=== PATIENT | female | born 1935 | race Asian ===

== ENCOUNTER → 2016-12-03 | Outpatient (CLI) | payer OTHER ==
[~2016-12-03] MED LIST: ALEN70TA48 PO; APIX2.5T PO; CALC1TAB90 PO; FOLI1TAB15 PO; MELO-273 PO; METF500T4 PO; MULT1TAB70 PO; POTA8TAB4 PO; ROSU10 PO
== END | disposition home or self-care (01) ==
LOC: RADPV 14:20
PROVIDERS: ATTEND Internal Medicine
DX: S43.52XA Sprain of left acromioclavicular joint, initial encounter (principal); M19.012 Primary osteoarthritis, left shoulder; X58.XXXA Exposure to other specified factors, initial encounter; Y93.89 Activity, other specified; Y92.89 Other specified places as the place of occurrence of the external cause; Y99.8 Other external cause status

== ENCOUNTER 2017-06-05 00:03 | Emergency (ER) | payer OTHER ==
[~2017-06-05] VITALS: Ht 144.8 cm; Wt 62.0 kg
[~2017-06-05 00:03] MED LIST changes: +MELO-106 PO; -MELO-273 PO
[2017-06-05] MEDS ORDERED: LORA1TAB3 PO (00:10)
[2017-06-05] MEDS ORDERED: METO25 PO (00:10)
[2017-06-05 00:27] LABS: GLUCOSE,POINT OF CARE 127 MG/DL (70-110)
[2017-06-05 00:34] LABS: BASOPHILS % (AUTO) 0.4 % (0.0-2.0); EOSINOPHILS % (AUTO) 1.6 % (1.0-6.0); HEMATOCRIT 40.7 % (36-46); HEMOGLOBIN 13.7 g/dL (12.0-16.0); LYMPHOCYTES # (AUTO) 2.9 K/uL (1.0-4.8); LYMPHOCYTES % (AUTO) 39.1 % (22.0-44.0); MEAN CORPUSCULAR HEMOGLOBIN 32.8 pg (26.0-34.0); MEAN CORPUSCULAR HGB CONC 33.6 G/dL (31.0-37.0); MEAN CORPUSCULAR VOLUME 98 fL (80-100); MONOCYTES # (AUTO) 0.6 K/uL (0.1-1.0); MONOCYTES % (AUTO) 7.5 % (2.0-9.0); NEUTROPHILS # (AUTO) 3.9 K/uL (1.8-7.7); NEUTROPHILS % (AUTO) 51.4 % (40.0-70.0); PLATELET COUNT (AUTO) 219 K/uL (150-450); RED BLOOD CELL COUNT(AUTO) 4.18 MIL/uL (4.00-5.20); RED CELL DISTRIBUTION WIDTH 14.3 % (11.5-14.5); WHITE BLOOD COUNT (AUTO) 7.5 K/uL (4.5-11.0)
[2017-06-05 00:43] LABS: ANION GAP 9 mmol/L (8-16); CALCIUM, TOTAL 9.6 mg/dL (8.8-10.5); CARBON DIOXIDE 31 mmol/L (22-29); CHLORIDE 103 mmol/L (98-107); CREATININE 1.18 mg/dL (0.60-1.30); GLOMERULAR FILTR. RATE CALC 44 mL/min (>60); POTASSIUM 3.4 mmol/L (3.5-5.1); SODIUM SERUM 143 mmol/L (136-145); UREA NITROGEN, BLOOD 23 mg/dL (7-18)
[2017-06-05 00:45] LABS: PROTHROMBIN TIME 10.6 SEC (9.4-11.6)
[2017-06-05] MEDS ORDERED: NITROGLYCERIN 2% (1 GM=INCH) PACKET TP ONE (00:45)
[2017-06-05] MEDS ORDERED: ASPIRIN 81 MG CHEWABLE TABLET PO ONE (00:45)
[2017-06-05 01:02] LABS: B-TYPE NATRIURETIC PEPTIDE 54 pg/mL (0-100)
[2017-06-05 01:08] LABS: ALANINE AMINOTRANSFERASE 19 U/L (12-78); ALBUMIN 4.3 g/dL (3.4-5.0); ASPARTATE AMINOTRANSFERASE 20 U/L (15-37); BILIRUBIN,TOTAL 0.3 mg/dL (0.1-1.0); CREATINE KINASE MB 0.8 ng/mL (0-5); CREATINE KINASE, TOTAL 119 U/L (26-192); TOTAL PROTEIN, SERUM 8.6 g/dL (6.4-8.2)
[2017-06-05 01:18] LABS: APPEARANCE,URINE CLEAR (CLEAR); GLUCOSE, URINE (UA) NEGATIVE (NEGATIVE); KETONES,URINE NEGATIVE (NEGATIVE); LEUKOCYTE ESTERASE ,URINE NEGATIVE (NEGATIVE); OCCULT BLOOD,URINE SMALL (NEGATIVE); PROTEIN,URINE NEGATIVE (NEGATIVE)
[2017-06-05 01:28] LABS: RBC,URINE 0-2 /HPF (0-2); WBC,URINE None Seen /HPF (0-5)
[2017-06-05] MEDS ORDERED: POTASSIUM CHLORIDE 10% 40 MEQ/30 ML LIQUID UDCUP PO ONE (02:45)
[2017-06-05 03:05] VITALS: BP 118/71
== END 2017-06-05 04:05 | disposition short-term general hospital (02) ==
LOC: EMS 00:04
DX: R07.89 Other chest pain (principal); I48.91 Unspecified atrial fibrillation; E87.6 Hypokalemia; I10 Essential (primary) hypertension; E11.9 Type 2 diabetes mellitus without complications; E78.00 Pure hypercholesterolemia, unspecified; Z88.0 Allergy status to penicillin; Z88.8 Allergy status to other drugs, medicaments and biological substances
CPT/HCPCS: 82962; 93005; 99285

== ENCOUNTER → 2021-06-02 | Outpatient (CLI) | payer MEDICARE, OTHER ==
[~2021-06-02] MED LIST changes: -ALEN70TA48 PO; +ALEN70TA65 PO; +AMINOPHYLLINE 25 MG/ML 10 ML VIAL IV ONE; +AMINOPHYLLINE 25 MG/ML 10 ML VIAL IVP ONE; +LORA-1000 PO; +METF-1211 PO; -METF500T4 PO; +METO25 PO; -POTA8TAB4 PO; +REGADENOSON 0.4 MG/5 ML PF SYRINGE IVP ONE; -ROSU10 PO; +ROSU10TA72 PO; +SESTAMIBI TC99M/UD ISOTOPE 1 EA INJ INJ ONE; +SLOWK8 PO
[2021-06-02 10:16] VITALS: BP 137/64
[2021-06-02 10:33] VITALS: BP 124/66
== END | disposition home or self-care (01) ==
LOC: CARDMN 08:28
PROVIDERS: ATTEND Internal Medicine Cardiovascular Disease
DX: R00.2 Palpitations (principal)
CPT/HCPCS: 78452; 93017; A9500; J0280; J2785